=== PATIENT | female | born 1970 | race Asian ===

== ENCOUNTER → 2021-09-12 | Emergency (ER) | payer BC ==
[~2021-09-12] MED LIST: AMOX TR-K250 MG/5 M PO; DUI500 PO; SYNTHROID50 MCG PO
== END | disposition left against medical advice (07) ==
LOC: ER 18:39
DX: Z53.20 Procedure and treatment not carried out because of patient's decision for unspecified reasons (principal)

== ENCOUNTER 2021-09-14 13:20 | Emergency (ER) | payer BC ==
[~2021-09-14] VITALS: Ht 162.6 cm; Wt 55.3 kg
[2021-09-14] MEDS ORDERED: SYNTHROID50 MCG PO (13:34)
[2021-09-14] MEDS ORDERED: DUI500 PO (13:35)
[2021-09-14] MEDS ORDERED: AMOX TR-K250 MG/5 M PO (13:35)
== END 2021-09-14 15:53 | disposition home or self-care (01) ==
LOC: ER 13:20
DX: N39.0 Urinary tract infection, site not specified (principal)